=== PATIENT | female | born 1970 | race Caucasian/White ===

== ENCOUNTER → 2024-04-02 | Day surgery (SDC) | payer BC ==
[2024-03-30 16:31] LABS: BASOPHILS % 0.5 % (0.0-1.0); EOSINOPHILS # (AUTO) 0.2 (0.0-0.4); HEMATOCRIT 38.8 % (34.2-44.1); HEMOGLOBIN 12.3 g/dL (12.0-16.0); LYMPHOCYTES # (AUTO) 1.7 (1.0-3.2); LYMPHOCYTES % 25.2 % (18.0-39.1); MEAN CORPUSCULAR HEMOGLOBIN 31.2 pg (28-32); MEAN CORPUSCULAR HGB CONC 31.7 g/dL (31-35); MEAN CORPUSCULAR VOLUME 98.5 fL (81-99); MONOCYTES # (AUTO) 0.5 (0.2-0.8); MONOCYTES % 7.9 % (4.4-11.3); NEUTROPHILS # (AUTO) 4.2 (2.1-6.9); NEUTROPHILS % 63.1 % (38.7-80.0); PLATELET COUNT 224 x10e3/uL (140-360); RED BLOOD COUNT 3.94 x10e6/uL (3.6-5.1); RED CELL DISTRIBUTION WIDTH 13.1 % (11.7-14.4); WHITE BLOOD COUNT 6.58 x10e3/uL (4.8-10.8)
[2024-03-30 16:49] LABS: CALCIUM 9.4 mg/dL (8.4-10.2); CREATININE, SERUM 0.85 mg/dL (0.57-1.11)
[~2024-04-02] MED LIST: BUPIVACAINE 0.25% 30ML SDV ONE; BUPIVACAINE HCL 0.5% INJ 30 ML VIAL INJ ONE; BUPIVACAINE LIPOSOME/PF 266 MG/20 ML IJ ONE; EPINEPHRINE HCL 1:1000 1ML 1 MG/ML AMP ONE; FENTANYL CITRATE/PF 100MCG/2 ML INJ ONE; HYDROXYQUINOLINE1 GM PO; KETOROLAC TROMETHAMINE 30 MG/ML VIAL ONE; LIDOCAINE HCL 2% LOCAL INJ 5 ML SDV VIAL INJ ONE; LOSARTAN POTASS25 MG PO; MELOXICAM7.5 MG PO; MIDAZOLAM HCL 2 MG/2 ML VIAL ONE; MULTI-VITAMIN1 EACH PO; NEOSTIGMINE 1 MG/ML 10ML VIAL ONE; ONDANSETRON HCL INJ 2MG/ML 2ML 2 MG/ML VIAL ONE; PRILOSEC OTC20 MG PO; PROBIOTIC & AC1 EACH PO; PROPOFOL IV EMULSION 10 MG/ML 20 ML VIAL ONE; ROCURONIUM BROMIDE 10 MG/ML 5ML VIAL IV ONE; SEVOFLURANE INHAL SOLN 250 ML PEN BTL ONE; SUCCINYLCHOLINE CHLORIDE 20 MG/ML 10ML VIAL ONE; UQORA PO; VITAMIN C 250250 MG PO; VITAMIN D310 MCG PO
[2024-04-02] MEDS: LACTATED RINGER'S 1,000 ML ONE (08:13)
[2024-04-02] MEDS: CEFAZOLIN SODIUM 2 GM ONE (08:13)
[2024-04-02] MEDS: ONDANSETRON HCL INJ 2MG/ML 2ML 2 MG/ML VIAL ONE (13:40)
[2024-04-02] MEDS: METOCLOPRAMIDE HCL 10 MG/2ML VIAL ONE (13:45)
[2024-04-02] MEDS: HYDROCODONE/APAP 5MG-325MG TAB ONE (13:55)
[2024-04-02 14:33] VITALS: BP 136/84; PULSE 65; RESP 17; O2SAT 99
== END | disposition home or self-care (01) ==
LOC: OR 07:16
PROVIDERS: ATTEND Podiatrist Foot Surgery
DX: M66.871 Spontaneous rupture of other tendons, right ankle and foot (principal); M77.31 Calcaneal spur, right foot; M24.574 Contracture, right foot; I10 Essential (primary) hypertension; R05.9 Cough, unspecified; E66.01 Morbid (severe) obesity due to excess calories; K21.9 Gastro-esophageal reflux disease without esophagitis; M35.00 Sjogren syndrome, unspecified; Z88.2 Allergy status to sulfonamides; Z88.8 Allergy status to other drugs, medicaments and biological substances; Z01.810 Encounter for preprocedural cardiovascular examination; Z01.812 Encounter for preprocedural laboratory examination; Z01.818 Encounter for other preprocedural examination; Z79.899 Other long term (current) drug therapy
CPT/HCPCS: 27650; 27687; 28118; 36415; 71046; 80048; 85025; 93005; C1713; C9290; J0171; J0330; J0690; J1885; J2003; J2250; J2405; J2704; J2710; J2765; J3010; J7121; Q4150; 76000